=== PATIENT | female | born 1985 | race Caucasian/White ===

== ENCOUNTER 2024-04-15 02:51 | Inpatient (IN) | payer OTHER ==
[~2024-04-15] VITALS: Ht 160 cm; Wt 65.3 kg
[2024-04-15 03:48] LABS: BASOPHILS % 0.7 % (0.0-2.0); EOSINOPHILS % 0.9 % (0.0-5.0); HEMATOCRIT. 35.2 % (36.0-48.0); HEMOGLOBIN. 12.3 g/dL (12.0-16.0); LYMPHOCYTES % 27.1 % (20.0-50.0); MEAN CORPUSCULAR HEMOGLOBIN 30.1 pg (28.0-32.0); MEAN CORPUSCULAR HGB CONC 34.9 g/dL (31.0-37.0); MEAN CORPUSCULAR VOLUME 86.1 fL (81.0-99.0); MEAN PLATELET VOLUME 8.5 fl (7.4-10.4); MONOCYTES % 5.8 % (2.0-8.0); NEUTROPHILS % 65.5 % (40.0-76.0); PLATELET 249 x1000/uL (130-400); RED BLOOD CELL COUNT 4.08 mill/uL (4.2-5.4); RED CELL DISTRIBUTION WIDTH 13.6 % (11.6-14.6); WHITE BLOOD COUNT 9.4 x1000/uL (4.5-11.0)
[2024-04-15 03:59] LABS: CHLORIDE 111 mEq/L (98-107); POTASSIUM 3.7 mEq/L (3.5-5.1); SODIUM 145 mEq/L (136-145)
[2024-04-15 04:00] LABS: CARBON DIOXIDE 25 mEq/L (21-32)
[2024-04-15 04:05] LABS: CREATININE 0.7 mg/dL (0.6-1.0); GLUCOSE 121 mg/dL (70-105)
[2024-04-15 04:06] LABS: AMMONIA < 17 uMol/L (<32); ETHANOL BLOOD 276 mg/dL (<10); UREA NITROGEN BLOOD 13 mg/dL (9-23)
[2024-04-15 04:10] LABS: TROPONIN I HIGH SENSITIVITY < 4 ng/L (3.0-34)
[2024-04-15] MEDS: SODIUM CHLORIDE 0.9% 1,000 ML IV ONE (05:34)
[2024-04-15] MEDS: ONDANSETRON HCL 4MG/2ML INJ IV STA (05:37)
[2024-04-15] MEDS: LEVETIRACETAM 1000MG PREMIX 100 ML IV ONE (05:37)
[2024-04-15] MEDS: ONDANSETRON HCL 4MG/2ML INJ IV NR (05:42)
[2024-04-15] MEDS: LEVETIRACETAM 1000MG PREMIX 100 ML IV NR (05:42)
[2024-04-15] MEDS: IOHEXOL-350 100 ML BOTTLE ONE (07:46)
[2024-04-15] MEDS: IOHEXOL-300 100 ML BOTTLE ONE (07:46)
[2024-04-15] MEDS ORDERED: LORAZEPAM 1MG TABLET PO PRN (08:00)
[2024-04-15] MEDS ORDERED: CHLORDIAZEPOXIDE 25MG CAPSULE PO PRN (08:00)
[2024-04-15] MEDS ORDERED: IPRATROPIUM/ALBUTEROL 0.5-3(2.5)MG/3ML NEB HHN PRN (08:00)
[2024-04-15] MEDS ORDERED: CLONIDINE 0.1MG TABLET PO PRN (08:00)
[2024-04-15] MEDS ORDERED: MAGNESIUM/ALUMINUM HYDROXIDE/SIMETHICONE 30ML UDC PO PRN (08:00)
[2024-04-15] MEDS ORDERED: ACETAMINOPHEN 325MG TABLET PO PRN (08:00)
[2024-04-15] MEDS ORDERED: DOCUSATE SODIUM 100MG CAPSULE PO PRN (08:00)
[2024-04-15] MEDS ORDERED: LORAZEPAM 2MG/ML INJ IV PRN ×2 (08:00→18:00)
[2024-04-15] MEDS ORDERED: GUAIFENESIN 200MG/10ML SUGAR FREE UDC PO PRN (08:00)
[2024-04-15 08:34] LABS: TRIGLYCERIDE 161 mg/dL (0-150)
[2024-04-15 08:35] LABS: LDL CHOLESTEROL 110 mg/dL (5-100)
[2024-04-15 08:36] LABS: ALANINE AMINOTRANSFERASE 34 IU/L (10-49); ALBUMIN 4.5 g/dL (3.2-4.8); ASPARTATE AMINOTRANSFERASE 36 IU/L (<34); CHOLESTEROL 168 mg/dL (<200); CREATINE KINASE 257 IU/L (34-145); HDL CHOLESTEROL 47 mg/dL (>65)
[2024-04-15 08:37] LABS: BILIRUBIN TOTAL 0.3 mg/dL (0.1-1.0); PROTEIN TOTAL 7.5 g/dL (6.0-8.3)
[2024-04-15 08:38] LABS: T4 FREE 1.51 ng/dL (0.89-1.76)
[2024-04-15 08:41] LABS: BILIRUBIN DIRECT < 0.1 mg/dL (<=3.0)
[2024-04-15 10:33] LABS: CLARITY URINE CLEAR (CLEAR); COLOR URINE YELLOW (YELLOW); GLUCOSE URINE NEGATIVE (NEGATIVE); KETONES URINE NEGATIVE (NEGATIVE); LEUKOCYTE ESTERASE URINE NEGATIVE (NEGATIVE); NITRITE URINE NEGATIVE (NEGATIVE); OCCULT BLOOD URINE NEGATIVE (NEGATIVE); PROTEIN URINE NEGATIVE (NEGATIVE); SPECIFIC GRAVITY URINE 1.041 (1.005-1.030); UROBILINOGEN URINE 0.2 E.U./dL (0.2-1.0)
[2024-04-15 10:53] LABS: *AMPHETAMINES SCREEN URINE NEGATIVE (NEGATIVE); *BENZODIAZEPINES SCREEN URINE NEGATIVE (NEGATIVE)
[2024-04-15 10:54] LABS: *BARBITURATES SCREEN URINE NEGATIVE (NEGATIVE); *COCAINE SCREEN URINE NEGATIVE (NEGATIVE); CANNABINOID URINE SCREEN NEGATIVE (NEGATIVE); ECSTASY MDMA SCREEN URINE NEGATIVE (NEGATIVE); METHADONE URINE SCREEN NEGATIVE (NEGATIVE); OPIATES URINE SCREEN NEGATIVE (NEGATIVE); PHENCYCLIDINE URINE SCREEN NEGATIVE (NEGATIVE)
[2024-04-15] MEDS: PANTOPRAZOLE SODIUM 40 MG/VIAL IV SCH (11:05)
[2024-04-15] MEDS: ONDANSETRON HCL 4MG/2ML INJ IV PRN (11:05)
[2024-04-15] MEDS: FOLIC ACID 1 MG, THIAMINE HCL 100 MG, MVI, ADULT NO.1 10 ML in DEXTROSE 5% WATER 1,000 ML IV NR (11:11)
[2024-04-15] MEDS: ACETAMINOPHEN 325MG TABLET PO PRN (15:34)
[2024-04-15 16:00] VITALS: BP 103/62; PULSE 93; RESP 18; TEMP 36.78072; O2SAT 100
[2024-04-15 16:07] VITALS: BP 108/54; PULSE 95; RESP 18; TEMP 36.83628; O2SAT 95
[2024-04-15 18:13] VITALS: BP 103/62; PULSE 93; RESP 18; TEMP 36.8072
[2024-04-15 20:00] VITALS: BP 103/56; PULSE 90; RESP 19; TEMP 36.22512; O2SAT 98
[2024-04-15] MEDS: LEVETIRACETAM 500MG PREMIX 100 ML IV SCH (21:46)
[2024-04-16] VITALS (7 sets, daily range): BP systolic 99–125; BP diastolic 58–70; PULSE 66–82; RESP 18–20; TEMP 36.33624–37.16964; O2SAT 97–100
[2024-04-16 06:12] LABS: CHLORIDE 105 mEq/L (98-107); POTASSIUM 3.4 mEq/L (3.5-5.1); SODIUM 139 mEq/L (136-145)
[2024-04-16 06:14] LABS: CALCIUM 9.2 mg/dL (8.7-10.4); CARBON DIOXIDE 26 mEq/L (21-32)
[2024-04-16 06:19] LABS: CREATININE 0.5 mg/dL (0.6-1.0); GLUCOSE 115 mg/dL (70-105); UREA NITROGEN BLOOD 11 mg/dL (9-23)
[2024-04-16 06:33] LABS: HEPATITIS B SURFACE ANTIGEN NEGATIVE (Negative)
[2024-04-16 06:41] LABS: BASOPHILS % 0.4 % (0.0-2.0); EOSINOPHILS % 0.5 % (0.0-5.0); HEMATOCRIT. 33.7 % (36.0-48.0); HEMOGLOBIN. 11.5 g/dL (12.0-16.0); LYMPHOCYTES % 13.8 % (20.0-50.0); MEAN CORPUSCULAR HEMOGLOBIN 29.3 pg (28.0-32.0); MEAN CORPUSCULAR HGB CONC 34.1 g/dL (31.0-37.0); MEAN CORPUSCULAR VOLUME 85.9 fL (81.0-99.0); MEAN PLATELET VOLUME 9.1 fl (7.4-10.4); NEUTROPHILS % 76.3 % (40.0-76.0); PLATELET 224 x1000/uL (130-400); RED BLOOD CELL COUNT 3.92 mill/uL (4.2-5.4); RED CELL DISTRIBUTION WIDTH 13.8 % (11.6-14.6); WHITE BLOOD COUNT 10.7 x1000/uL (4.5-11.0)
[2024-04-16 06:54] LABS: HEPATITIS C AB NON REACTIVE (Neg) (Negative)
[2024-04-16] MEDS: MULTIVITAMINS,THER W-MINERALS TABLET PO SCH (08:50)
[2024-04-16] MEDS: FOLIC ACID 1MG TABLET PO SCH (08:50)
[2024-04-16] MEDS: KETOROLAC 15MG/ML VIAL IV PRN (08:50)
[2024-04-16] MEDS: THIAMINE HCL 100MG TABLET PO SCH (08:50)
[2024-04-16] MEDS ORDERED: NALOXONE HCL 0.4MG/ML VIAL IV PRN (15:15)
[2024-04-16] MEDS: MORPHINE SULFATE 2 MG/ML INJ (NOT FOR IM USE) IV NR (15:25)
[2024-04-17] VITALS: BP 115/66; PULSE 73; RESP 18; TEMP 36.44736; O2SAT 98
[2024-04-17 04:00] VITALS: BP 102/58; PULSE 60; RESP 19; TEMP 36.22512; O2SAT 99
[2024-04-17 08:00] VITALS: BP 120/65; PULSE 78; RESP 18; TEMP 37.05852; O2SAT 100
[2024-04-17 10:38] VITALS: BP 120/65; PULSE 78; TEMP 98.7; O2SAT 100
== END 2024-04-17 13:20 | disposition home or self-care (01) | DRG 85 ==
LOC: ER 03:02 → 7WST 04:16 → EDBEDREQSVC 05:33 → EDBEDREQTM 05:33 → EDBEDREQSVC 13:52
PROVIDERS: ADMIT Internal Medicine; ATTEND Internal Medicine
DX: S06.6X0A Traumatic subarachnoid hemorrhage without loss of consciousness, initial encounter (principal); G92.8 Other toxic encephalopathy; J98.11 Atelectasis; E78.1 Pure hyperglyceridemia; R16.0 Hepatomegaly, not elsewhere classified; F10.10 Alcohol abuse, uncomplicated; Y90.8 Blood alcohol level of 240 mg/100 ml or more; W18.39XA Other fall on same level, initial encounter; Y93.89 Activity, other specified; Y92.89 Other specified places as the place of occurrence of the external cause; Y99.8 Other external cause status; Z82.49 Family history of ischemic heart disease and other diseases of the circulatory system; Z90.49 Acquired absence of other specified parts of digestive tract
CPT/HCPCS: 36415; 70496; 71045; 71260; 74177; 80048; 80061; 80076; 80305; 80320; 81003; 82140; 82550; 83605; 84439; 84443; 84484; 85025; 86705; 87340; 93005; 99291; A4606; J1885; J1953; J2270; J2405; J2470; J3411; J3490; J7030; J7070; Q9967; G0480